=== PATIENT | male | born 1950 | race Hispanic/Latino ===

== ENCOUNTER → 2019-04-06 | Day surgery (SDC) | payer MEDICARE ==
[2019-03-18 13:45] LABS: BASOPHILS # (AUTO) 0.1 (0.0-0.1); BASOPHILS % 0.5 % (0.0-1.0); EOSINOPHILS # (AUTO) 0.1 (0.0-0.4); EOSINOPHILS % 1.1 % (0.0-6.0); HEMATOCRIT 46.3 % (38.2-49.6); HEMOGLOBIN 16.1 g/dL (14.0-18.0); LYMPHOCYTES # (AUTO) 2.4 (1.0-3.2); LYMPHOCYTES % 24.4 % (18.0-39.1); MEAN CORPUSCULAR HEMOGLOBIN 32.3 pg (28-32); MEAN CORPUSCULAR HGB CONC 34.8 g/dL (31-35); MEAN CORPUSCULAR VOLUME 92.8 fL (81-99); MONOCYTES # (AUTO) 0.8 (0.2-0.8); MONOCYTES % 8.3 % (4.4-11.3); NEUTROPHILS # (AUTO) 6.3 (2.1-6.9); NEUTROPHILS % 65.3 % (38.7-80.0); PLATELET COUNT 259 x10e3/uL (140-360); RED BLOOD COUNT 4.99 x10e6/uL (4.3-5.7); RED CELL DISTRIBUTION WIDTH 12.3 % (11.7-14.4)
--- NOTE | 2019-03-18 14:11 | Diagnostic Imaging Report ---
EXAMINATION: CHEST 2 VIEWS INDICATION: Pre-operative COMPARISON: None FINDINGS: LINES/TUBES:None LUNGS:The lungs are well-inflated. No focal consolidation or pulmonary edema. PLEURA:No pleural effusion or pneumothorax. MEDIASTINUM:The cardiomediastinal silhouette appears normal in size and shape. BONES/SOFT TISSUES:No acute osseous injury. ABDOMEN:No free air under the diaphragm. IMPRESSION: No focal pneumonia or pulmonary edema. Signed by: Angel Oviedo MD on 03/18/2019 2:07 PM
[~2019-04-06] MED LIST: ACETAMINOPHEN 1000 MG/100 ML IV ONE; ATROPINE SULFATE 1 MG/ML VIAL ONE; CEFAZOLIN SOD 1 GM/NS 50ML 50 ML IV ONE; DEXAMETHASONE SOD PHOS INJ 4 MG/ML VIAL ONE; EPINEPHRINE 1 MG/ML 30ML VIAL ONE; EPINEPHRINE HCL 1:1000 1ML 1 MG/ML AMP ONE; FENTANYL CITRATE/PF 100MCG/2 ML INJ ONE; IBUPROFEN400 MG PO; KETOROLAC TROMETHAMINE 30 MG/ML VIAL ONE; LIDOCAINE 2%/ EPINEPHRINE 20ML MDV ONE; LIDOCAINE HCL 2% LOCAL INJ 5 ML SDV VIAL INJ ONE; LOSARTAN POTAS100 MG PO; MIDAZOLAM HCL 2 MG/2 ML VIAL ONE; NEOSTIGMINE 1 MG/ML 10ML VIAL ONE; ONDANSETRON HCL INJ 2MG/ML 2ML 2 MG/ML VIAL ONE; PROPOFOL IV EMULSION 10 MG/ML 20 ML VIAL ONE; ROCURONIUM BROMIDE 10 MG/ML 5ML VIAL ONE; ROPIVACAINE 0.5% 5 MG/ML 30 ML SDV ONE; SEVOFLURANE INHAL SOLN 250 ML PEN BTL ONE
--- OUTSIDE RECORDS SUMMARY | 2019-04-06 05:43 | XMS REPORT ---
Author Author [facility] Address Unknown Phone Unavailable Care Team Providers Care Fish Roe Technician Name Role Phone PER VÁSQUEZ Unavailable Unavailable Problems This patient has no known problems. Allergies, Adverse Reactions, Alerts This patient has no known allergies or adverse reactions. Medications This patient has no known medications. Results Test Description Test Time Test Comments Text Results Atomic Results Result Comments CHEST 2 VIEWS 2019-03-18 14:06:00 [facility] [address] [place] [address] Patient Name: QUINCY POST MR #: [id number] : 1950 Age/Sex: 68/M Req #: [id number] [facility] Physician: Ordered by: PER VÁSQUEZ MD Report #: [id number] Location: OR Room/Bed: Procedure: [id number] DX/CHEST 2 VIEWS Exam Date: 03/18/19 Exam Time: 1330 REPORT STATUS: Signed EXAMINATION: CHEST 2 VIEWS INDICATION: Pre-operative COMPARISON: None FINDINGS: LINES/TUBES:None LUNGS:The lungs are well-inflated. No focal consolidation or pulmonary edema. PLEURA:No pleural effusion or pneumothorax. MEDIASTINUM:The cardiomediastinal silhouette appears normal in size and shape. BONES/SOFT TISSUES:No acute osseous injury. ABDOMEN:No free air under the diaphragm. IMPRESSION: No focal pneumonia or pulmonary edema. Signed by: Pipe Nance MD on 03/18/2019 2:07 PM Dictated By: PIPE NANCE MD 06 Transcribed By: LIZABETH KO on 03/18/191406 COPY TO: PER VÁSQUEZ MD
[2019-04-06 09:50] VITALS: BP 155/86
--- NOTE | 2019-04-06 12:19 | Operative Report ---
DATE OF PROCEDURE: 04/06/2019 SURGEON: Robert Gomez MD CHIEF SPECIALIST LEED: Fabian Wolff, certified PA. PREOPERATIVE DIAGNOSIS: Left shoulder rotator cuff tear. POSTOPERATIVE DIAGNOSIS: Left shoulder rotator cuff tear. PROCEDURES: Left shoulder arthroscopy, biceps tenotomy, subacromial decompression, rotator cuff repair. INDICATIONS: The patient is a 68-year-old gentleman, who has a 6-month history of pain and limited function in his left shoulder. He has failed conservative management and would like to proceed with surgical intervention. The risks and benefits of the procedure have been explained. The lengthy recovery has been discussed. He states he understands and wishes to proceed. PROCEDURE IN DETAIL: The patient was brought to the operating room and placed under general anesthetic. He received prophylactic antibiotics and a regional block in the holding area. He was positioned in the beach chair position on the shoulder table. His left upper extremity was prepped and draped in a sterile manner. A preoperative time-out was performed. An incision was made in the posterior soft spot. An arthroscope was placed into the shoulder joint. The shoulder joint was insufflated with sterile saline and systematically inspected. The glenohumeral surfaces had some grade 1 changes of chondromalacia. The anterior labrum had extensive degenerative tearing; this carried up into about the 11 o'clock position. The biceps appeared to be relatively well preserved, but the anchor was somewhat unstable at the supraglenoid tubercle. A lateral working portal was established. A biceps tenotomy was performed. A mechanical shaver was introduced into the shoulder joint. The articular surface of the rotator cuff tear was inspected. This was a tear of the entire supraspinatus extending back into the infraspinatus. The subscapularis had some degenerative changes, but was well attached to the proximal humerus. The articular surface of the rotator cuff was gently debrided back to more healthy tissue. The scope was then placed into the subacromial space. A subacromial bursectomy was performed. An electro blade shaver was used to obtain hemostasis. The patient was noted to have a type 3 acromion, this was debrided back to open up the subacromial space. The greater tuberosity was then gently decorticated. Two Arthrex bioabsorbable suture anchors preloaded with FiberTape stitches were placed at the articular margin of the greater tuberosity. These were passed through various portions of the rotator cuff using an ArthAccuSiliconion suture passer. An anterior shuttle portal was established. The sutures were then passed through a secondary bioabsorbable suture anchor. These were used in an anterior to posterior and posterior to anterior construct to perform a double row repair of the rotator cuff. The repair was probed. There was excellent approximation of the rotator cuff tendon down to bleeding cancellous bone. No additional auxiliary stitches were felt to be necessary. The arthroscopic instruments were removed. The portal incisions were closed with nylon stitches. A sterile bandage and an UltraSling were applied. Estimated blood loss was 10 mL. At the end of the procedure, all needle and sponge counts were correct. Robert Gomez MD DR/MARTHA /[id number]
== END | disposition home or self-care (01) ==
LOC: OR 05:41
PROVIDERS: ATTEND Specialist
DX: S46.022A Laceration of muscle(s) and tendon(s) of the rotator cuff of left shoulder, initial encounter (principal); I10 Essential (primary) hypertension; Z01.810 Encounter for preprocedural cardiovascular examination; Z01.812 Encounter for preprocedural laboratory examination; Z01.811 Encounter for preprocedural respiratory examination
CPT/HCPCS: 29826; 29827; 36415; 71046; 85025; 93005; C1713 ×2; J0131; J0461; J0690; J1100; J1885; J2001 ×2; J2250; J2405; J2704; J2710; J2795; J3010; J0171

== ENCOUNTER 2021-05-10 13:07 | Emergency (ER) | payer MEDICARE ==
[~2021-05-10] VITALS: Ht 165.1 cm; Wt 92.5 kg
[~2021-05-10 13:07] MED LIST changes: -ACETAMINOPHEN 1000 MG/100 ML IV ONE; -ATROPINE SULFATE 1 MG/ML VIAL ONE; -CEFAZOLIN SOD 1 GM/NS 50ML 50 ML IV ONE; -DEXAMETHASONE SOD PHOS INJ 4 MG/ML VIAL ONE; -EPINEPHRINE 1 MG/ML 30ML VIAL ONE; -EPINEPHRINE HCL 1:1000 1ML 1 MG/ML AMP ONE; -FENTANYL CITRATE/PF 100MCG/2 ML INJ ONE; -KETOROLAC TROMETHAMINE 30 MG/ML VIAL ONE; -LIDOCAINE 2%/ EPINEPHRINE 20ML MDV ONE; -LIDOCAINE HCL 2% LOCAL INJ 5 ML SDV VIAL INJ ONE; -MIDAZOLAM HCL 2 MG/2 ML VIAL ONE; -NEOSTIGMINE 1 MG/ML 10ML VIAL ONE; -ONDANSETRON HCL INJ 2MG/ML 2ML 2 MG/ML VIAL ONE; -PROPOFOL IV EMULSION 10 MG/ML 20 ML VIAL ONE; -ROCURONIUM BROMIDE 10 MG/ML 5ML VIAL ONE; -ROPIVACAINE 0.5% 5 MG/ML 30 ML SDV ONE; -SEVOFLURANE INHAL SOLN 250 ML PEN BTL ONE
[2021-05-10] MEDS ORDERED: METHOCARBAMOL 750 MG TAB PO ONE (13:30)
[2021-05-10] MEDS ORDERED: TRAMADOL HCL 50 MG TAB PO ONE (13:30)
[2021-05-10] MEDS ORDERED: ANAPROX DS550 MG PEG (13:32)
[2021-05-10] MEDS ORDERED: METHOCARBAMOL750 MG PO (13:32)
== END 2021-05-10 14:47 | disposition home or self-care (01) ==
LOC: ER 13:19
DX: M43.6 Torticollis (principal); I10 Essential (primary) hypertension
CPT/HCPCS: 99282